=== PATIENT | female | born 1975 | race Caucasian/White ===

== ENCOUNTER 2024-01-20 15:03 | Emergency (ER) | payer OTHER ==
[~2024-01-20] VITALS: Ht 172.7 cm; Wt 68.0 kg
[2024-01-20] MEDS: TETanus/Pertussis (Acell)/Diphther VAC/PF (Tdap-Adult) 0.5ml syringe IMVAC ONE (15:44)
[2024-01-20] MEDS ORDERED: HYDR-3965 PO (15:48)
[2024-01-20] MEDS ORDERED: CEPH-585 PO (15:48)
[2024-01-20 15:55] VITALS: BP 133/87; PULSE 87; RESP 16; TEMP 98.6; O2SAT 100
== END 2024-01-20 15:59 | disposition home or self-care (01) ==
LOC: ER 15:04
DX: S61.012A Laceration without foreign body of left thumb without damage to nail, initial encounter (principal); Z88.0 Allergy status to penicillin; W45.8XXA Other foreign body or object entering through skin, initial encounter; Y93.89 Activity, other specified; Y92.89 Other specified places as the place of occurrence of the external cause; Y99.8 Other external cause status
CPT/HCPCS: 12001; 90471; 90715; 99283